=== PATIENT | male | born 1990 | race African-American/Black ===

== ENCOUNTER 2020-12-29 15:26 | Emergency (ER) | payer MEDICAID ==
[~2020-12-29] VITALS: Ht 165.1 cm; Wt 100.0 kg
[2020-12-29] MEDS ORDERED: ONDANSETRON HCL 4MG/2ML INJ IV STA (15:52)
[2020-12-29] MEDS ORDERED: MORPHINE SULFATE 4 MG/ML CPJ (NOT FOR IM USE) IV STA (15:52)
[2020-12-29 16:31] LABS: HEMATOCRIT. 45.1 % (42.0-52.0); HEMOGLOBIN. 15.2 g/dL (14.0-18.0); MEAN CORPUSCULAR HEMOGLOBIN 28.5 pg (28.0-32.0); MEAN CORPUSCULAR VOLUME 84.5 fL (80.0-94.0); MEAN PLATELET VOLUME 8.2 fl (7.4-10.4); PLATELET 330 x1000/uL (130-400); RED BLOOD CELL COUNT 5.34 mill/uL (4.7-6.1)
[2020-12-29 16:39] LABS: CHLORIDE 108 mEq/L (98-107)
[2020-12-29 17:19] LABS: PLATELET ESTIMATE NORMAL
[2020-12-29] MEDS ORDERED: KETOROLAC 30MG/ML VIAL IV ONE (17:45)
[2020-12-29 17:58] LABS: CLARITY URINE CLEAR (CLEAR); COLOR URINE YELLOW (YELLOW); KETONES URINE 1+ (NEGATIVE); LEUKOCYTE ESTERASE URINE NEGATIVE (NEGATIVE); NITRITE URINE NEGATIVE (NEGATIVE); OCCULT BLOOD URINE NEGATIVE (NEGATIVE); PH URINE 7.5 (4.5-8.0); PROTEIN URINE 1+ (NEGATIVE); SPECIFIC GRAVITY URINE 1.027 (1.005-1.030)
[2020-12-29] MEDS ORDERED: HYDR-4346 MT (18:14)
[2020-12-29] MEDS ORDERED: TAMS-11 MT (18:16)
[2020-12-29] MEDS ORDERED: ONDA4TAB5 MT (18:16)
[2020-12-29] MEDS ORDERED: IBUP-2030 MT (18:16)
[2020-12-29] MEDS ORDERED: SODIUM CHLORIDE 0.9% 1,000 ML IV ONE (18:30)
[2020-12-29 18:39] VITALS: BP 139/79
[2020-12-29] MEDS ORDERED: HYDR-4009 MT (19:03)
== END 2020-12-29 19:50 | disposition home or self-care (01) ==
LOC: ER 15:26
DX: N13.2 Hydronephrosis with renal and ureteral calculous obstruction (principal)
CPT/HCPCS: 36415; 74177; 76700; 80053; 81003; 83690; 85025; 93005; 96361; 96374; 96375; 99285; J2270; J2405; J7030

== ENCOUNTER 2024-12-01 12:56 | Emergency (ER) | payer OTHER ==
[~2024-12-01] VITALS: Ht 172.7 cm; Wt 68.0 kg
[~2024-12-01 12:56] MED LIST: HYDR-4009 MT; HYDR-4346 MT; IBUP-2030 MT; ONDA4TAB5 MT; TAMS-11 MT
[2024-12-01 12:57] VITALS: BP 157/96; PULSE 95; RESP 16; TEMP 36.7; O2SAT 99
== END 2024-12-01 14:36 ==
LOC: ER 12:56
DX: I10 Essential (primary) hypertension (principal); Z79.899 Other long term (current) drug therapy
CPT/HCPCS: 99283